=== PATIENT | male | born 1965 | race African-American/Black ===

== ENCOUNTER 2022-04-24 13:29 | Outpatient (CLI) | payer OTHER | END 2022-04-24 21:21 | disposition home or self-care (01) | LOC: RESP 13:29 | PROVIDERS: ATTEND Nurse Practitioner Family | DX: M25.50 Pain in unspecified joint (principal); E11.9 Type 2 diabetes mellitus without complications; G62.89 Other specified polyneuropathies; J45.998 Other asthma ==

== ENCOUNTER 2022-05-21 11:36 | Outpatient (CLI) | payer OTHER ==
[2022-05-21 12:08] LABS: PLATELET COUNT 174 K/uL (142-355)
[2022-05-21 12:38] LABS: POTASSIUM 4.2 mmol/L (3.6-5.2)
== END 2022-05-21 20:00 | disposition home or self-care (01) ==
LOC: LABW 11:36
PROVIDERS: ATTEND Nurse Practitioner Family
DX: E11.69 Type 2 diabetes mellitus with other specified complication (principal); R79.89 Other specified abnormal findings of blood chemistry; R74.8 Abnormal levels of other serum enzymes; E78.49 Other hyperlipidemia; I10 Essential (primary) hypertension; E03.8 Other specified hypothyroidism; R16.0 Hepatomegaly, not elsewhere classified; G62.89 Other specified polyneuropathies; E55.9 Vitamin D deficiency, unspecified
CPT/HCPCS: 36415; 80053; 80061; 81002; 82043; 82306; 82570; 83036; 84153; 84436; 84443; 85027